=== PATIENT | male | born 2000 | race Caucasian/White ===

== ENCOUNTER 2020-10-09 11:22 | Emergency (ER) | payer OTHER ==
[~2020-10-09] VITALS: Ht 170.2 cm; Wt 88.9 kg
[2020-10-09] MEDS ORDERED: ACETAMINOPHEN ES 500 MG TABLET PO ONE (11:30)
[2020-10-09] MEDS ORDERED: ONDANSETRON ODT 4 MG TAB.RAPDIS SL ONE (11:30)
[2020-10-09] MEDS ORDERED: ONDANSETRON ODT 4 MG TAB.RAPDIS ONE (11:40)
[2020-10-09] MEDS ORDERED: ACETAMINOPHEN ES 500 MG TABLET ONE (11:40)
--- NOTE | 2020-10-09 11:41 | NUR ---
Came in bib R89, called in because of syncopal episode. EMT states pt was playing soccer this morning and hit his head on a pole, kept playing for 10mins and had a syncopal episode. Pt does not recal that he fainted. Came in via gurney in seated position, RA, GCS 15 Pt able to stand and transfer to bed however noticed some unsteady gait, able to take two steps towardes bed. able to follow simple commands. denies any nausea nor dizziness. reports changes in vision (described it is dark) able to tolerate xray to L wrist, and was transported by [employer] for [place] via [employer] kept warm dry and comfortable
--- NOTE | 2020-10-09 12:00 | NUR ---
back from CT still describes 8 headache. denies nausea nor dizziness RA NAD
[2020-10-09] MEDS ORDERED: ACET-2605 PO (12:39)
[2020-10-09] MEDS ORDERED: ONDA4TAB11 PO (12:39)
[2020-10-09 12:52] VITALS: BP 136/80
--- NOTE | 2020-10-09 12:52 | NUR ---
Patient discharged to home in stable condition. Written and verbal after care instructions given. Patient verbalizes understanding of instructions. Stressed follow up or return to ER for worsening s/s.
--- NOTE | 2020-10-09 12:52 | NUR ---
able to tolerate L wrist velcro splint. CMS check done.
== END 2020-10-09 12:53 | disposition home or self-care (01) ==
LOC: ER 11:22
DX: S09.90XA Unspecified injury of head, initial encounter (principal); S63.502A Unspecified sprain of left wrist, initial encounter; W18.01XA Striking against sports equipment with subsequent fall, initial encounter; Y93.66 Activity, soccer; Y92.322 Soccer field as the place of occurrence of the external cause; Y99.8 Other external cause status; R55 Syncope and collapse
CPT/HCPCS: 70450; 72125; 73110; 93005; A4663; A9150; Q0162